=== PATIENT | female | born 1970 | race Hispanic/Latino ===

== ENCOUNTER → 2018-10-24 | Day surgery (SDC) | payer OTHER, BC ==
[~2018-10-24] MED LIST: ATORVASTATIN CA20 MG PO; FENTANYL CITRATE/PF 100MCG/2 ML INJ ONE; LIDOCAINE HCL 2% LOCAL INJ 5 ML SDV VIAL INJ ONE; LISINOPRIL-HCT1 EAC2 PO; MIDAZOLAM HCL 2 MG/2 ML VIAL ONE; PROPOFOL IV EMULSION 10 MG/ML 20 ML VIAL ONE
[2018-10-24 10:20] VITALS: BP 103/55
--- NOTE | 2018-10-24 12:27 | Operative Report ---
DATE OF PROCEDURE: 10/24/2018 SURGEON: Tavon Jefferson MD PROCEDURE: EGD note with biopsies. INDICATION FOR EGD: Upper abdominal pain, acid reflux. MEDICATIONS: The patient was done under MAC, please see anesthesiologist's note. PROCEDURE IN DETAIL: With the patient in lateral decubitus position, a flexible fiberoptic Olympus gastroscope was introduced into the esophagus under direct visualization without any difficulty. There was some patchy erythema noted in the distal esophagus. The scope was then advanced with ease into the stomach and the mucosa overlying the antrum and the body revealed some diffuse erythema and low-grade to moderate edema, and biopsies were obtained and sent to stain for H. pylori. Multiple gastric ulcers were noted in the antrum up to approximately 6 mm in size, some with heaped up margins without active bleeding or stigmata of recent hemorrhage, biopsies obtained. The pylorus was then intubated and the scope was advanced into the second portion of the duodenum. Biopsies were obtained from the second portion to rule out sprue. Multiple minute ulcers were also noted in the duodenal bulb without active bleeding or stigmata of recent hemorrhage. The scope was then withdrawn back into the stomach and retroflexed, mucosa overlying the fundus and the cardia appeared to be within normal limits. The scope was then straightened out, it was subsequently withdrawn, and the patient tolerated the procedure well. IMPRESSION: 1. Distal esophagitis. 2. Gastritis, biopsied, biopsies sent to stain for Helicobacter pylori. 3. Gastric ulcers, antrum, several up to approximately 6 mm in size, some with heaped up margins without active bleeding or stigmata of recent hemorrhage, biopsies obtained. 4. Multiple minute ulcers, duodenal bulb. 5. Rule out sprue. PLAN: Follow up histology. Initiate Protonix 40 mg one p.o. q.a.m. before meals. Tavon Jefferson MD [facility] [place]/[facility]ANEL /[id number] cc: Harley Alston
== END | disposition home or self-care (01) ==
LOC: OR 06:30
PROVIDERS: ATTEND Internal Medicine Gastroenterology
DX: K29.50 Unspecified chronic gastritis without bleeding (principal); K20.9 Esophagitis, unspecified; K25.9 Gastric ulcer, unspecified as acute or chronic, without hemorrhage or perforation; K26.9 Duodenal ulcer, unspecified as acute or chronic, without hemorrhage or perforation; B96.81 Helicobacter pylori [H. pylori] as the cause of diseases classified elsewhere; R10.11 Right upper quadrant pain; R14.0 Abdominal distension (gaseous); K21.9 Gastro-esophageal reflux disease without esophagitis; R12 Heartburn; Z88.8 Allergy status to other drugs, medicaments and biological substances; E66.9 Obesity, unspecified; Z86.19 Personal history of other infectious and parasitic diseases; Z86.711 Personal history of pulmonary embolism; R19.7 Diarrhea, unspecified; R03.0 Elevated blood-pressure reading, without diagnosis of hypertension; Z68.34 Body mass index [BMI] 34.0-34.9, adult
CPT/HCPCS: 43239; J2001; J2250; J2704; J3010

== ENCOUNTER → 2018-10-28 | Outpatient (CLI) | payer OTHER, BC ==
[~2018-10-28] MED LIST changes: -FENTANYL CITRATE/PF 100MCG/2 ML INJ ONE; +IOPAMIDOL 370 MG/ML 200 ML INFUS..BTL INJ ONE; -LIDOCAINE HCL 2% LOCAL INJ 5 ML SDV VIAL INJ ONE; -MIDAZOLAM HCL 2 MG/2 ML VIAL ONE; -PROPOFOL IV EMULSION 10 MG/ML 20 ML VIAL ONE; +SODIUM CHLORIDE 0.9% 50ML 50 ML ONE
--- NOTE | 2018-10-28 19:10 | Diagnostic Imaging Report ---
EXAM: CT Chest WITH contrast 10/28/2018 12:00 AM INDICATION: ^[id number] ^1830 ^CHEST PAIN COMPARISON: None. TECHNIQUE: Chest was scanned utilizing a multidetector helical scanner from the lung apex through the level of the adrenal glands after administration of IV contrast with thin collimation. Coronal and sagittal reformations were obtained. IV CONTRAST: 100 mL Isovue-370 ORAL CONTRAST: None COMPLICATIONS: None RADIATION DOSE: Total DLP: 580.8 mGy*cm Estimated effective dose: (DLP x 0.015 x size factor) mSv CTDIvol has been reviewed. It is below the limits set by the Radiation Protocol Committee (RPC). FINDINGS: LINES/ TUBES: None. PULMONARY ARTERIES: No filling defects are identified in the main, right or left pulmonary arteries to their segmental and subsegmental levels, to suggest pulmonary embolism. The main pulmonary artery is normal in size, measuring 2.1 cm in diameter. LUNGS AND AIRWAYS: Minimal atelectasis in both lung bases, otherwise, lungs are unremarkable. Minimal bilateral central peribronchial wall thickening suggestive of airway inflammation. No bronchiectasis. Airways are normal. PLEURA: The pleural spaces are clear. HEART AND MEDIASTINUM: The thyroid gland is normal. No mediastinal, hilar or axillary lymphadenopathy. The heart is normal in size. There is no pericardial effusion. The thoracic aorta is unremarkable. 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 UPPER ABDOMEN: Hepatic steatosis. BONES: The visualized bony thorax is within normal limits. SOFT TISSUES: Bilateral breast implants. IMPRESSION: No pulmonary embolism. Lungs are unremarkable. Signed by: Dr. Leticia Shanks M.D. on 10/28/2018 7:06 PM
== END ==
LOC: CT 18:06
PROVIDERS: ATTEND Internal Medicine Interventional Cardiology
DX: I82.493 Acute embolism and thrombosis of other specified deep vein of lower extremity, bilateral (principal); R07.9 Chest pain, unspecified
CPT/HCPCS: 71260; Q9967